=== PATIENT | female | born 1950 | race Caucasian/White ===

== ENCOUNTER 2020-11-19 17:18 | Emergency (ER) | payer MEDICARE, OTHER ==
[~2020-11-19] VITALS: Ht 154.9 cm; Wt 117.9 kg
[2020-11-19 17:32] VITALS: BP 139/94
--- NOTE | 2020-11-19 17:39 | NUR ---
EKG IN TRIAGE. POC 86
[2020-11-19 19:03] LABS: ALANINE AMINOTRANSFERASE 27 U/L (12-78); ALBUMIN 3.3 g/dL (3.4-5.0); ANION GAP 8 mmol/L (5-15); CALCIUM 8.7 mg/dL (8.5-10.1); CHLORIDE 104 mmol/L (98-107); CREATININE 1.14 mg/dL (0.55-1.02)
[2020-11-19 19:05] LABS: BASOPHILS % (AUTO) 1 % (0-1); EOSINOPHILS % (AUTO) 1 % (1-7); LYMPHOCYTES % (AUTO) 18 % (22-44); MEAN CORPUSCULAR HEMOGLOBIN 29.6 pg (27.0-34.8); MEAN CORPUSCULAR HGB CONC 33.1 g/dL (32.4-35.8); MEAN PLATELET VOLUME 8.7 fL (7.4-10.4); MONOCYTES % (AUTO) 7 % (2-9); NEUTROPHILS % (AUTO) 72 % (42-75); PLATELET COUNT 342 x10^3/uL (130-400); RED BLOOD COUNT 4.01 x10^6/uL (3.82-5.3); RED CELL DISTRIBUTION WIDTH 14.5 % (9.6-15.2)
[2020-11-19 19:13] LABS: ALKALINE PHOSPHATASE 101 U/L (45-117); BILIRUBIN,TOTAL 0.3 mg/dL (0.2-1.0); TOTAL PROTEIN 7.7 g/dL (6.4-8.2); TROPONIN I < 0.015 ng/mL (0.000-0.045)
--- NOTE | 2020-11-19 19:24 | NUR ---
pt called back to room from lobby
--- NOTE | 2020-11-19 19:45 | NUR ---
pt presents to ed with c/o lightheadedness, high HR, and SOB. pt neuro intact, resps even and rapid, all monitors attached, nsr, nadn.
--- NOTE | 2020-11-19 20:38 | NUR ---
pt educated on dc instructions, verbalized undertsanding. ambulatory to dc desk with steady gait.
== END 2020-11-19 20:53 | disposition home or self-care (01) ==
LOC: ED 20:50
DX: R06.00 Dyspnea, unspecified (principal); R00.2 Palpitations; E78.00 Pure hypercholesterolemia, unspecified; E11.9 Type 2 diabetes mellitus without complications
CPT/HCPCS: 36415; 71045; 80053; 82962; 83735; 84443; 84484; 85025; 85379; 93005; 99285